=== PATIENT | female | born 1975 | race Caucasian/White ===

== ENCOUNTER → 2016-07-05 | Outpatient (CLI) | payer OTHER | LOC: BRMIMAGING 10:46 | PROVIDERS: ATTEND Physician Assistant | DX: M25.551 Pain in right hip (principal); M25.552 Pain in left hip | CPT/HCPCS: 73521-PO ==

== ENCOUNTER → 2016-07-23 | Outpatient (CLI) | payer OTHER | LOC: BRMIMAGING 07:58 | PROVIDERS: ATTEND Physician Assistant | DX: Z12.31 Encounter for screening mammogram for malignant neoplasm of breast (principal) | CPT/HCPCS: G0202 ==

== ENCOUNTER → 2017-01-17 | Outpatient (CLI) | payer OTHER | LOC: BRMIMAGING 10:38 | PROVIDERS: ATTEND Internal Medicine Rheumatology | DX: M79.1 Myalgia (principal) | CPT/HCPCS: 73120-PO ==